=== PATIENT | male | born 1970 | race Caucasian/White ===

== ENCOUNTER 2019-07-07 18:07 | Emergency (ER) | payer OTHER ==
[~2019-07-07] VITALS: Ht 180.3 cm; Wt 75.4 kg
[2019-07-07] MEDS ORDERED: LIDOCAINE 2% MDV 20 ML VIAL SC ONE (19:45)
[2019-07-07] MEDS ORDERED: ADACEL/BOOSTRIX VACCINE (DIPHTH/PERTUSS/ACELL/TETANUS)0.5ML SYR (90715) IM ONE (20:15)
[2019-07-07] MEDS ORDERED: NORC1TAB7 PO (21:00)
[2019-07-07] MEDS ORDERED: DOXY100C37 PO (21:00)
[2019-07-07 21:40] VITALS: BP 143/79
[2019-07-07] MEDS ORDERED: NORCO, ANEXSIA 5/325MG TABLET (HYDROcodone/ACETAMINOPHEN) PO ONE (21:45)
[2019-07-07] MEDS ORDERED: DOXYCYCLINE HYCLATE 100 MG TAB PO ONE (21:45)
--- NOTE | 2019-07-08 08:17 | REP ---
Left great toe four views : There is no fracture or dislocation. Mineralization and joint spaces are normal except for MTP joint osteoarthritis . There are no calcifications or foreign bodies. Impression: Negative left great toe except for MTP joint osteoarthritis . Electronically Signed by Bennie Schofield MD 07/08/2019 08:09 A
== END 2019-07-07 21:48 | disposition home or self-care (01) ==
LOC: M ED 18:07
DX: S91.112A Laceration without foreign body of left great toe without damage to nail, initial encounter (principal); W26.8XXA Contact with other sharp object(s), not elsewhere classified, initial encounter; Y92.814 Boat as the place of occurrence of the external cause; Y93.89 Activity, other specified; Y99.9 Unspecified external cause status; Z88.0 Allergy status to penicillin; Z88.1 Allergy status to other antibiotic agents